=== PATIENT | male | born 1960 | race American Indian/Alaskan Native ===

== ENCOUNTER 2019-01-05 14:22 | Emergency (ER) | payer OTHER ==
--- NOTE | 2019-01-05 15:55 | Emergency Department Report ---
Blank Doc - Documentation Documentation: This is a 58-year-old male that presents with lacerations to 3rd and 4th distal digits. Patient states he cut fingers yesterday while doing yard work. He cleaned with soap and water. He is currently taking ibuprofen which is controlling pain. He is concerned with swelling that is uncontrolled. Denies foreign body sensation, numbness or tingling, or weakness. This initial assessment diagnostic orders/clinical plan/treatment(s) is/are subject to change based on patient's health status, clinical progression and re- assessment by fellow clinical providers in the ED. Further treatment and workup at subsequent clinical providers discretion. Patient/guardians urged not to elope from ED s their condition may be serious if not clinically assessed and managed. Initial orders include: Fast Track for evaluation.
[2019-01-05 20:28] VITALS: BP 181/112
[2019-01-05] MEDS ORDERED: BOOSTRIX IM ONE (21:27)
[2019-01-05] MEDS ORDERED: AUGMENTIN 875 MG PO STA (21:28)
--- NOTE | 2019-01-05 21:33 | Emergency Department Report ---
ED Laceration HPI - HPI Chief Complaint: Wound/Laceration Stated Complaint: LEFT FINGERS INJURY Time Seen by Provider: 01/05/19 15:50 Occurred When: Yesterday (at 2 PM) Location: Upper Extremity Severity: moderate Tetanus Status: Up to Date Laceration Symptoms: Yes Pain, No Foreign Body Sensation, No Numbness, No Weakness Other History: Patient was working with a saw and cut his finger on yesterday at 2 PM causing pain and bleeding continued to have some drainage from the finger to base of the sacrum to emerge department for further evaluation and treatment recommendations. States his tetanus shot is not up-to-date. No numbness and tingling. This is associated has a dull throbbing pain but still is able to mo ve his fingers with full range of motion ED Review of Systems ROS: Stated complaint: LEFT FINGERS INJURY Other details as noted in HPI Constitutional: denies: chills, fever Eyes: denies: eye pain, eye discharge, vision change ENT: denies: ear pain, throat pain Respiratory: denies: cough, shortness of breath, wheezing Cardiovascular: denies: chest pain, palpitations Endocrine: no symptoms reported Gastrointestinal: denies: abdominal pain, nausea, diarrhea Genitourinary: denies: urgency, dysuria Musculoskeletal: denies: back pain, joint swelling, arthralgia Skin: denies: rash, lesions Neurological: denies: headache, weakness, paresthesias Psychiatric: denies: anxiety, depression Hematological/Lymphatic: denies: easy bleeding, easy bruising ED Past Medical Hx - Past Medical History Previous Medical History?: No - Surgical History Past Surgical History?: No - Social History Smoking Status: Never Smoker Substance Use Type: Alcohol - Medications Home Medications: Home Medications Medication Instructions Recorded Confirmed Last Taken Type Amoxicillin/Potassium Clav 1 each PO BID #20 tablet 01/05/19 Unknown Rx [Augmentin 875-125 Tablet] Chlorhexidine Gluconate [Hibiclens] 10 ml TP BID #240 liquid 01/05/19 Unknown Rx Laceration Physical Exam - Exam General: Vital signs noted. No distress. Alert and acting appropriately. Laceration Location: Upper Extremity (1.5 cm laceration to the palmar aspect of the distalmost third and fourth phalanges not involving the nail bed or fingernail. Pulses 2+. Capillary refills are brisk. Full range of motion. Flexion and extension strength is 5 over 5) Laceration Exam: Yes Normal Distal CMS, No Foreign Body, No Exposed Tendon, Vessel, or Nerve, No Tendon Injury ED Course Vital Signs 01/05/19 01/05/19 15:51 20:25 Temperature 98.2 F 98.3 F Pulse Rate 76 71 Respiratory 20 16 Rate Blood Pressure 173/104 181/112 O2 Sat by Pulse 99 99 Oximetry Critical care attestation.: If time is entered above; I have spent that time in minutes in the direct care of this critically ill patient, excluding procedure time. ED Disposition Clinical Impression: Finger laceration, Laceration of left hand with delay in treatment Disposition: DC-01 TO HOME OR SELFCARE Is pt being admited?: No Does the pt Need Aspirin: No Condition: Stable Instructions: Finger Laceration (ED), Wound Healing and Your Diet (ED) Referrals: KYLER ADAMS MD [Primary Care Provider] - 3-5 Days [facility] [Provider Group] - 3-5 Days
== END 2019-01-05 21:45 | disposition home or self-care (01) ==
LOC: ED 14:22
DX: S61.213A Laceration without foreign body of left middle finger without damage to nail, initial encounter (principal); S61.215A Laceration without foreign body of left ring finger without damage to nail, initial encounter; W25.XXXA Contact with sharp glass, initial encounter; Y93.89 Activity, other specified; Y92.89 Other specified places as the place of occurrence of the external cause; Y99.8 Other external cause status
CPT/HCPCS: 90471; 90715